=== PATIENT | male | born 1995 | race Two or more races ===

== ENCOUNTER 2020-03-23 13:17 | Emergency (ER) | payer MEDICAID ==
[~2020-03-23] VITALS: Ht 177.8 cm; Wt 77.0 kg
[2020-03-23] MEDS ORDERED: SODIUM CHLORIDE 0.9% 1,000 ML IV ONE (13:45)
[2020-03-23] MEDS ORDERED: LORAZEPAM 0.5MG TABLET PO ONE (13:45)
[2020-03-23] MEDS ORDERED: ONDANSETRON HCL 4MG/2ML INJ IV ONE (13:45)
[2020-03-23 14:07] LABS: CHLORIDE 103 mEq/L (98-107)
[2020-03-23 16:31] VITALS: BP 115/72
== END 2020-03-23 16:32 | disposition home or self-care (01) ==
LOC: ER 13:41
DX: R55 Syncope and collapse (principal)
CPT/HCPCS: 36415; 80048; 93005; 96374; 99284; J2405; J7030; Z7610